=== PATIENT | female | born 1995 | race Two or more races ===

== ENCOUNTER 2021-01-24 09:27 | Emergency (ER) | payer OTHER ==
[~2021-01-24] VITALS: Ht 162.6 cm; Wt 61.7 kg
[2021-01-24] MEDS ORDERED: PRENA1 TRUE CO1 EACH PO (09:35)
== END 2021-01-24 15:17 | disposition home or self-care (01) ==
LOC: ER 09:27
DX: O26.851 Spotting complicating pregnancy, first trimester (principal); O36.80X1 Pregnancy with inconclusive fetal viability, fetus 1; Z34.01 Encounter for supervision of normal first pregnancy, first trimester

== ENCOUNTER → 2021-03-03 | Emergency (ER) | payer OTHER ==
[~2021-03-03] VITALS: Ht 162.6 cm; Wt 59.0 kg
[~2021-03-03] MED LIST: PRENA1 TRUE CO1 EACH PO
== END | disposition home or self-care (01) ==
LOC: ER 08:21
DX: N83.291 Other ovarian cyst, right side (principal); N93.8 Other specified abnormal uterine and vaginal bleeding

== ENCOUNTER 2022-06-07 16:32 | Emergency (ER) | payer OTHER ==
[~2022-06-07] VITALS: Ht 162.6 cm; Wt 61.2 kg
== END 2022-06-07 18:47 | disposition home or self-care (01) ==
LOC: ER 16:32
DX: K52.9 Noninfective gastroenteritis and colitis, unspecified (principal); Z20.822 Contact with and (suspected) exposure to COVID-19

== ENCOUNTER 2022-09-02 11:11 | Emergency (ER) | payer OTHER ==
[~2022-09-02] VITALS: Ht 162.6 cm; Wt 61.2 kg
== END 2022-09-02 14:02 | disposition home or self-care (01) ==
LOC: ER 11:11
DX: N39.0 Urinary tract infection, site not specified (principal)

== ENCOUNTER 2022-12-24 09:40 | Emergency (ER) | payer BC ==
[~2022-12-24] VITALS: Ht 162.6 cm; Wt 61.2 kg
== END 2022-12-24 12:21 | disposition home or self-care (01) ==
LOC: ER 09:40
DX: N91.2 Amenorrhea, unspecified (principal)

== ENCOUNTER 2024-07-07 12:14 | Emergency (ER) | payer OTHER ==
[~2024-07-07] VITALS: Ht 162.6 cm; Wt 59.0 kg
[2024-07-07 14:15] LABS: HEMOGLOBIN 13.5 g/dL (12.0-15.00); MEAN CELL VOLUME 88.1 fL (80.00-100.00); MEAN CORPUSCULAR HEMOGLOBIN 30.5 pg (27.00-32.0); MEAN CORPUSCULAR HGB CONC 34.6 g/dl (32.0-36.0); PLATELET COUNT 271 K/uL (150-450); RED BLOOD COUNT 4.43 M/uL (4.00-6.00); RED CELL DISTRIBUTION WIDTH 13.3 % (11.5-14.5)
[2024-07-07 14:15] LABS: URINE APPEARANCE Cloudy; URINE BILIRRUBIN Negative (NEGATIVE); URINE BLOOD Trace; URINE COLOR Yellow; URINE GLUCOSE Negative (NEGATIVE); URINE KETONE Trace (NEGATIVE); URINE LEUKOCYTE Negative; URINE NITRATE Negative; URINE PROTEIN Trace (NEGATIVE); URINE UROBILINOGEN 0.2 E.U./dl
[2024-07-07 14:20] LABS: URINE BACTERIA 5414.1 uL (0.0-1933); URINE RBC 16.6 uL (0.0-20.8); URINE WBC 10.2 uL (0.0-23.2)
[2024-07-07 14:21] LABS: URINE CAST 0.15 uL (0.0-1.40)
[2024-07-07 14:35] LABS: CALCIUM 9.2 mg/dL (8.5-10.1); CREATININE SERUM 0.62 mg/dL (0.55-1.02); GFR 113.02; POTASSIUM 3.75 mEq/L (3.5-5.1)
== END 2024-07-07 16:46 | disposition home or self-care (01) ==
LOC: ER 12:16
PROVIDERS: General Practice
DX: O23.30 Infections of other parts of urinary tract in pregnancy, unspecified trimester (principal); N39.0 Urinary tract infection, site not specified

== ENCOUNTER 2024-09-26 09:47 | Emergency (ER) | payer OTHER ==
[~2024-09-26] VITALS: Ht 162.6 cm; Wt 62.1 kg
[2024-09-26 11:33] LABS: HEMATOCRIT 43.3 % (36.0-45.00); MEAN CELL VOLUME 88.2 fL (80.00-100.00); MEAN CORPUSCULAR HEMOGLOBIN 30.5 pg (27.00-32.0); MEAN CORPUSCULAR HGB CONC 34.5 g/dl (32.0-36.0); PLATELET COUNT 281 K/uL (150-450); RED BLOOD COUNT 4.91 M/uL (4.00-6.00); RED CELL DISTRIBUTION WIDTH 13.4 % (11.5-14.5)
[2024-09-26 12:17] LABS: CALCIUM 9.8 mg/dL (8.5-10.1); CREATININE SERUM 0.61 mg/dL (0.55-1.02); GFR 115.16; POTASSIUM 3.75 mEq/L (3.5-5.1)
[2024-09-26 12:30] LABS: URINE APPEARANCE Clear; URINE BILIRRUBIN Negative (NEGATIVE); URINE BLOOD Moderate; URINE COLOR Yellow; URINE GLUCOSE Negative (NEGATIVE); URINE KETONE Negative (NEGATIVE); URINE LEUKOCYTE Trace; URINE NITRATE Negative; URINE PROTEIN Negative (NEGATIVE); URINE UROBILINOGEN 0.2 E.U./dl
[2024-09-26 12:33] LABS: URINE EPITHELIAL CELLS 61.5 uL (0.0-38.8); URINE RBC 18.2 uL (0.0-20.8); URINE WBC 29.7 uL (0.0-23.2)
[2024-09-26 13:00] LABS: URINE CAST 0.44 uL (0.0-1.40)
== END 2024-09-26 14:31 | disposition home or self-care (01) ==
LOC: ER 09:47
PROVIDERS: Emergency Medicine
DX: D25.9 Leiomyoma of uterus, unspecified (principal); N93.9 Abnormal uterine and vaginal bleeding, unspecified